=== PATIENT | male | born 1980 | race Caucasian/White ===

== ENCOUNTER 2021-11-18 14:00 | Emergency (ER) | payer OTHER ==
[2021-11-18 15:01] LABS: BASOPHIL 0.3 % (0-2); EOSINOPHIL 0.3 & (0-5); HCT 41.3 % (42.0-52.0); HGB 13.8 g/dl (13.2-18.0); MCH 29.6 pg (25.0-31.0); MCHC 33.4 g/dL (32.0-36.0); MCV 88.4 fL (78.0-100.0); MONOCYTE 5.9 % (0-12); MPV 11.3 fL (6.0-9.5); NEUTROPHIL 75.2 % (41-80); PLT 169 K/uL (150-400); RBC 4.67 M/uL (4.70-6.00); RDW 12.4 % (11.5-14.0); WBC 3.72 K/uL (4.0-10.5)
[2021-11-18 15:09] LABS: BUN/CREAT RATIO (CALC) 21.1 RATIO; CREATININE 0.57 mg/dL (0.67-1.17); POTASSIUM 4.4 mmol/L (3.5-5.1)
== END 2021-11-18 16:14 | disposition home or self-care (01) ==
LOC: FER 14:00
PROVIDERS: Emergency Medicine
DX: M94.0 Chondrocostal junction syndrome [Tietze] (principal); I10 Essential (primary) hypertension; Z28.310 Unvaccinated for COVID-19; Z20.822 Contact with and (suspected) exposure to COVID-19; Z88.1 Allergy status to other antibiotic agents
CPT/HCPCS: 36415; 71046; 80048; 84484; 85025; 93005